=== PATIENT | female | born 1985 | race Caucasian/White ===

== ENCOUNTER 2017-11-17 16:24 | Outpatient (CLI) | payer BC ==
[~2017-11-17] VITALS: Ht 167.6 cm; Wt 84.1 kg
[~2017-11-17 16:24] MED LIST: PREN1TAB60 PO
[2017-11-17] MEDS ORDERED: ACETAMINOPHEN 325 MG TABLET PO PRN (17:00)
[2017-11-17] MEDS ORDERED: ACETAMINOPHEN 325 MG TABLET ONE (17:01)
[2017-11-17 17:03] VITALS: BP 123/64
[2017-11-17 17:18] LABS: HEMATOCRIT 33.3 % (34.6-47.8); WHITE BLOOD COUNT 10.2 x10^3/uL (3.4-10)
[2017-11-17 17:29] LABS: ASPARTATE AMINO TRANSFERASE 8 U/L (15-37); BLOOD UREA NITROGEN 9 mg/dL (7-18)
== END 2017-11-17 18:20 | disposition home or self-care (01) ==
LOC: LDOP 16:24
PROVIDERS: ATTEND Obstetrics & Gynecology
DX: O26.893 Other specified pregnancy related conditions, third trimester (principal); R03.0 Elevated blood-pressure reading, without diagnosis of hypertension; R51 Headache; Z3A.34 34 weeks gestation of pregnancy
CPT/HCPCS: 36415; 59025; 80053; 81003; 84550; 85025; 99211; G0463

== ENCOUNTER 2017-12-24 02:16 | Inpatient (IN) | payer BC ==
[~2017-12-24] VITALS: Ht 167.6 cm; Wt 88.0 kg
[2017-12-24] MEDS ORDERED: NEWBORN KIT ONE ×2 (02:27→02:33)
[2017-12-24] MEDS ORDERED: LIDOCAINE 1%, 20ML ONE (02:27)
[2017-12-24] MEDS ORDERED: MISOPROSTOL 200 MCG TABLET ONE (02:28)
[2017-12-24] MEDS ORDERED: OXYTOCIN 30U/ 0.9% NaCL 500ML 500 ML ONE (02:28)
[2017-12-24 02:30] VITALS: BP 129/73
[2017-12-24] MEDS: LACTATED RINGERS 1,000 ML IV SCH ×3 (02:35→18:39)
[2017-12-24] MEDS: D5%-LACTATED RINGERS 1,000 ML IV SCH ×3 (02:39→18:39)
[2017-12-24] MEDS ORDERED: OXYTOCIN 30U/ 0.9% NaCL 500ML 500 ML IV ONE (02:39)
[2017-12-24] MEDS ORDERED: OXYTOCIN 30U/ 0.9% NaCL 500ML 500 ML IV PRN (02:39)
[2017-12-24] MEDS ORDERED: FENTANYL PF 100 MCG/2ML ONE ×2 (02:48→03:09)
[2017-12-24 02:56] LABS: BASOPHILS # (AUTO) 0.04 x10^3/uL (0-0.1); BASOPHILS % (AUTO) 0 % (0-1); EOSINOPHILS # (AUTO) 0.03 x10^3/uL (0-0.4); EOSINOPHILS % (AUTO) 0 % (1-7); LYMPHOCYTES # (AUTO) 2.54 x10^3/uL (1-3.4); LYMPHOCYTES % (AUTO) 26 % (22-44); MD NO; MEAN CORPUSCULAR HEMOGLOBIN 25.8 pg (27.0-34.8); MEAN CORPUSCULAR HGB CONC 32.3 g/dL (32.4-35.8); MEAN CORPUSCULAR VOLUME 79.8 fL (80-100); MONOCYTES # (AUTO) 0.94 x10^3/uL (0.2-0.8); MONOCYTES % (AUTO) 10 % (2-9); NEUTROPHILS # (AUTO) 6.13 x10^3/uL (1.8-6.8); NEUTROPHILS % (AUTO) 63 % (42-75); PLATELET COUNT 193 x10^3/uL (130-400); RED BLOOD COUNT 4.24 x10^6/uL (3.82-5.3); RED CELL DISTRIBUTION WIDTH 14.8 % (9.6-15.2)
[2017-12-24] MEDS ORDERED: FENTANYL PF 100 MCG/2ML IVPush PRN (03:00)
[2017-12-24] MEDS ORDERED: FENTANYL PF 100 MCG/2ML IV PRN (03:00)
[2017-12-24] MEDS ORDERED: ONDANSETRON 2MG/ML, 2ML IVPush PRN (03:00)
[2017-12-24] MEDS ORDERED: BUPIVACAINE 0.25% ONE (03:09)
[2017-12-24] MEDS ORDERED: FENTANYL/BUPIV./NS/PF 250 ML EPIDCONT ONE (03:09)
[2017-12-24] MEDS ORDERED: LACTATED RINGERS 1,000 ML IV SCH (03:33)
[2017-12-24] MEDS ORDERED: FENTANYL/BUPIV./NS/PF 250 ML EPIDCONT SCH (03:33)
[2017-12-24] MEDS ORDERED: LACTATED RINGERS 1,000 ML IVBOLUS PRN (04:00)
[2017-12-24] MEDS: OXYTOCIN 30U/ 0.9% NaCL 500ML 500 ML IV SCH ×2 (05:03→15:03)
[2017-12-24] MEDS ORDERED: ONDANSETRON 2MG/ML, 2ML IV PRN (05:30)
[2017-12-24] MEDS ORDERED: OXYcodone/APAP 5/325MG TABLET PO PRN (05:30)
[2017-12-24] MEDS ORDERED: OXYcodone IR 5MG TABLET PO PRN (05:30)
[2017-12-24] MEDS ORDERED: MISOPROSTOL 200 MCG TABLET PR PRN (05:30)
[2017-12-24] MEDS ORDERED: ACETAMINOPHEN 325 MG TABLET PO PRN (05:30)
[2017-12-24] MEDS ORDERED: AMPICILLIN 2 GM in SODIUM CHLORIDE 0.9% 50 ML IVPB STA (05:58)
[2017-12-24] MEDS ORDERED: IBUPROFEN 600 MG TABLET ONE (08:52)
[2017-12-24] MEDS: IBUPROFEN 600 MG TABLET PO PRN ×2 (08:54→15:51)
[2017-12-24] MEDS: PRENATAL VIT/IRON/FA 1 EACH TABLET PO SCH (09:00)
[2017-12-24 11:00] VITALS: BP 138/92
[2017-12-24 14:46] LABS: BASOPHILS # (AUTO) 0.03 x10^3/uL (0-0.1); BASOPHILS % (AUTO) 0 % (0-1); EOSINOPHILS # (AUTO) 0.04 x10^3/uL (0-0.4); EOSINOPHILS % (AUTO) 0 % (1-7); LYMPHOCYTES # (AUTO) 1.81 x10^3/uL (1-3.4); LYMPHOCYTES % (AUTO) 16 % (22-44); MD NO; MEAN CORPUSCULAR HEMOGLOBIN 25.8 pg (27.0-34.8); MEAN CORPUSCULAR HGB CONC 32.5 g/dL (32.4-35.8); MEAN CORPUSCULAR VOLUME 79.5 fL (80-100); MEAN PLATELET VOLUME 9.7 fL (7.4-10.4); MONOCYTES % (AUTO) 8 % (2-9); NEUTROPHILS # (AUTO) 8.64 x10^3/uL (1.8-6.8); NEUTROPHILS % (AUTO) 76 % (42-75); PLATELET COUNT 170 x10^3/uL (130-400); RED BLOOD COUNT 3.81 x10^6/uL (3.82-5.3); RED CELL DISTRIBUTION WIDTH 14.7 % (9.6-15.2)
[2017-12-24] MEDS: DOCUSATE 100 MG CAPSULE PO PRN (15:51)
[2017-12-24 16:00] VITALS: BP 128/82
[2017-12-24 21:00] VITALS: BP 133/86
[2017-12-25 00:08] VITALS: BP 104/59
[2017-12-25] MEDS: IBUPROFEN 600 MG TABLET PO PRN ×3 (00:10→16:39)
[2017-12-25] MEDS: OXYTOCIN 30U/ 0.9% NaCL 500ML 500 ML IV SCH ×3 (01:03→21:03)
[2017-12-25] MEDS: LACTATED RINGERS 1,000 ML IV SCH ×3 (02:39→18:39)
[2017-12-25] MEDS: D5%-LACTATED RINGERS 1,000 ML IV SCH ×3 (02:39→18:39)
[2017-12-25 04:10] VITALS: BP 102/68
[2017-12-25 07:30] VITALS: BP 117/74
[2017-12-25] MEDS: PRENATAL VIT/IRON/FA 1 EACH TABLET PO SCH (09:28)
[2017-12-25] MEDS: DOCUSATE 100 MG CAPSULE PO PRN (09:28)
[2017-12-25 19:40] VITALS: BP 131/85
[2017-12-26] MEDS: LACTATED RINGERS 1,000 ML IV SCH (02:39)
[2017-12-26] MEDS: D5%-LACTATED RINGERS 1,000 ML IV SCH (02:39)
[2017-12-26] MEDS: IBUPROFEN 600 MG TABLET PO PRN (04:58)
[2017-12-26] MEDS: OXYTOCIN 30U/ 0.9% NaCL 500ML 500 ML IV SCH (07:03)
[2017-12-26 08:00] VITALS: BP 126/83
[2017-12-26] MEDS: PRENATAL VIT/IRON/FA 1 EACH TABLET PO SCH (09:00)
[2017-12-26] MEDS: DOCUSATE 100 MG CAPSULE PO PRN (09:21)
[2017-12-26] MEDS ORDERED: IBUP-1222 PO (12:46)
== END 2017-12-26 13:00 | disposition home or self-care (01) | DRG 775 ==
LOC: LDOP 02:16 → LDIP 02:53 → 2NW 09:00
PROVIDERS: ADMIT Obstetrics & Gynecology; ATTEND Obstetrics & Gynecology
PROC: 10E0XZZ Delivery of Products of Conception, External Approach (ICD-10-PCS; principal; 2017-12-24)
PROC: 3E0R3BZ Introduction of Anesthetic Agent into Spinal Canal, Percutaneous Approach (ICD-10-PCS; 2017-12-24)
PROC: 00HU33Z Insertion of Infusion Device into Spinal Canal, Percutaneous Approach (ICD-10-PCS; 2017-12-24)
DX: O69.1XX0 Labor and delivery complicated by cord around neck, with compression, not applicable or unspecified (principal); Z37.0 Single live birth; Z3A.39 39 weeks gestation of pregnancy
CPT/HCPCS: 36415; 85025; 86850; 86900; J0290; J3010; J2590; J7120